=== PATIENT | male | born 1945 | race Caucasian/White ===

== ENCOUNTER 2022-03-03 05:48 | Day surgery (SDC) | payer OTHER ==
[~2022-03-03] VITALS: Ht 175.3 cm; Wt 79.5 kg
[~2022-03-03 05:48] MED LIST: CYCLOBENZAPRINE10 MG PO; ELIQUIS5 MG PO; EQ LUBRICATING15 ML; FEROSUL325 MG PO; HYDROCHLOROTHIA25 MG PO; METOPROLOL TAR100 MG PO; NORVASC10 MG PO; OSTERA TABLET1 EACH PO; VITAMIN D3125 MC1 PO; ZESTRIL40 MG PO
--- NOTE | 2022-03-03 07:57 | NUR ---
03/03/22 0757 Stephanie Moore 0752 PATIENT ARRIVES TO PACU UNRESPONSIVE TO VERBAL STIMULI. RESP EVEN AND UNLABORED, MASK AT 6 LITERS.
--- NOTE | 2022-03-03 08:32 | NUR ---
PT ALERT, OREINTED AND MENTIONED HE HAS HAD SCOPE BEFORE. ALL QUESTIONS ASKED WERE ANSWERED. PT CONFIRMED HE HAS RIDE COMING AT DC. GAVE BLESSING.
--- NOTE | 2022-03-03 11:50 | OR ---
[facility] [address] [place], [place] [address] Signed DATE OF OPERATION: 03/03/2022 SURGEON: Xavier Roberto MD PREOPERATIVE DIAGNOSES: 1. Diverticulosis. 2. Internal hemorrhoids. 3. Intermittent rectal bleeding. 4. Probable personal history of colonic polyps. 5. Borderline anemia, now resolved. POSTOPERATIVE DIAGNOSES: 1. Minimal sigmoid diverticulosis. 2. Moderate external hemorrhoids. 3. Minimal internal hemorrhoids. 4. 5 mm polyp at 7 cm. PROCEDURE: Colonoscopy with hot biopsy. ESTIMATED BLOOD LOSS: None. INDICATIONS: Jasson is a 76-year-old gentleman, asked to see me for followup colonoscopy. He describes anoscopy in the office with banding of hemorrhoids many years ago. He remembers at least two colonoscopies while living in [place]. He said he has been in three different . He is known to have diverticulosis along with his minimal to moderate internal hemorrhoids. He is pretty sure he had colonic polyps removed previously. He does have intermittent rectal bleeding. He had five days of fairly significant rectal bleeding several months ago. That has now resolved. He does use Eliquis for his chronic atrial fibrillation. He has been using iron tablets for quite some time. He had borderline anemia with hematocrit of 40.7. His mean cell volume was normal at 92. That is now resolved. He has no lower GI complaints. There is no family history of colon cancer or polyps to his knowledge. He has also had at least two prior TIAs. In that regard, he really cannot tolerate swings in his blood pressure and therefore he does qualify for monitored anesthesia care. In the office, I had given him a pamphlet on colonoscopy. We had reviewed the nature of the test. He understands there is risk including, but not limited to gas bloating, crampy abdominal pain, bleeding, perforation requiring surgery, and missed diagnosis. He had expressed Electronically Signed By: XAVIER ROBERTO MD 03/03/22 1150 PATIENT NAME: JASSON GALVAN OPERATIVE REPORT DATE OF : 45 REPORT #: [id number] PHYSICIAN: XAVIER ROBERTO MD PCP: NICO JOHNSON REPORT IS CONFIDENTIAL AND NOT TO BE RELEASED WITHOUT AUTHORIZATION [facility] [address] [place], [place] [address] Signed understanding and wished to proceed. PROCEDURE NOTE: Jasson was taken into our endoscopy suite and placed in the left lateral decubitus position. He was given monitored anesthesia care with propofol per our nurse content development specialist. A digital rectal exam was performed. He does have moderate bilateral external hemorrhoids. He had good sphincter tone. Prostate was indurated. The adult colonoscope had been introduced and advanced all the way around into the cecum under direct visualization of the camera. It took a few minutes to pass the colonoscope in and out until we straightened the colon and made our way into the cecum itself. His prep was quite excellent. We could easily see the appendiceal orifice and the ileocecal valve. The scope was then slowly withdrawn. We took pictures throughout for photodocumentation. He does have some diverticula in the sigmoid colon. They are minimal to moderate in size, few in number, and scattered about. We did find one small flat sessile polyp at 7 cm in the rectum. It was easily removed with the help of hot biopsy forceps. Upon retroflexion of the scope, he does have minimal internal hemorrhoids, although, they do appear little bit friable and I suspect they bleed once in a while. After this, the gas was suctioned out and the colonoscope was removed. Jasson tolerated the procedure quite well. RECOMMENDATIONS: I will see Jasson back in my office in 7 to 14 days to review his results. We will also check on his records from [place]. Xavier Roberto MD ALB/MODL /[id number] cc: YASMANY Alejandro MD Copies: NICO JOHNSON Electronically Signed By: XAVIER ROBERTO MD 03/03/22 1150 PATIENT NAME: JASSON GALVAN OPERATIVE REPORT DATE OF : 45 REPORT #: [id number] PHYSICIAN: XAVIER ROBERTO MD PCP: NCIO JOHNSON REPORT IS CONFIDENTIAL AND NOT TO BE RELEASED WITHOUT AUTHORIZATION [facility] [address] [facility] [place] [address] Signed XAVIER ROBERTO MD ~ Electronically Signed By: XAVIER ROBERTO MD 03/03/22 1150 PATIENT NAME: JASSON GALVAN OPERATIVE REPORT DATE OF : 45 REPORT #: [id number] PHYSICIAN: XAVIER ROBERTO MD PCP: NICO JOHNSON REPORT IS CONFIDENTIAL AND NOT TO BE RELEASED WITHOUT AUTHORIZATION
--- NOTE | 2022-03-04 11:43 | PATH ---
[facility] [address] [place], [place] [address] Signed SPECIMEN(S): A RECTAL POLYP AT 8 CM SPECIMEN SOURCE: A. RECTAL POLYP AT 8 CM CLINICAL HISTORY: Colonoscopy. History of rectal bleeding, diverticulosis. Post: Rectal polyp, internal/external hemorrhoids, diverticulosis. FINAL PATHOLOGIC DIAGNOSIS: Rectum, polyp at 8 cm, polypectomy: - Hyperplastic polyp. - Negative for dysplasia or malignancy. NAL:cml:C2NR MICROSCOPIC EXAMINATION: Histologic sections of all submitted blocks are examined by light microscopy. These findings, together with the gross examination, support the pathologic diagnosis. GROSS DESCRIPTION: The specimen, labeled "TH, 1," and designated on the requisition "rectum polypectomy at 8 cm," is received in formalin and consists of one fragment of pink-deutsch tissue (0.3 cm in greatest dimension). The specimen is submitted entirely in cassette (A1). AC (under the direct supervision of a pathologist) The Gross Description was prepared using a voice recognition system. The report was reviewed for accuracy; however, sound-alike word errors, addition and/or deletions may occur. If there is any question about this report, please contact Client Services. PERFORMING LABORATORY: The technical component was performed by [employer], [address] [place] [address] (CLIA# [id number]). [facility], [address] [address] (CLIA# [id number]). Diagnostician: Candi Noland MD Pathologist Electronically Signed 03/04/2022 PATIENT NAME: MARCIANO GALVAN PATHOLOGY DATE OF : 45 REPORT #: [id number] PHYSICIAN: LESA ARRIAGA PCP: NICO JOHNSON REPORT IS CONFIDENTIAL AND NOT TO BE RELEASED WITHOUT AUTHORIZATION [address] [address] Signed Copies: ~ PATIENT NAME: MARCIANO GALVAN PATHOLOGY DATE OF : 45 REPORT #: [id number] PHYSICIAN: LEAS PATHOLOGY PCP: NICO JOHNSON REPORT IS CONFIDENTIAL AND NOT TO BE RELEASED WITHOUT AUTHORIZATION
== END 2022-03-03 08:50 | disposition home or self-care (01) ==
LOC: OPS 05:48 → DS 05:48 → OPS 07:30
PROVIDERS: ATTEND Colon & Rectal Surgery
PROC: 0DBP8ZX Excision of Rectum, Via Natural or Artificial Opening Endoscopic, Diagnostic (ICD-10-PCS; principal; 2022-03-03 07:30)
DX: K62.1 Rectal polyp (principal); K57.30 Diverticulosis of large intestine without perforation or abscess without bleeding; K64.4 Residual hemorrhoidal skin tags; K64.0 First degree hemorrhoids; D50.9 Iron deficiency anemia, unspecified; I48.91 Unspecified atrial fibrillation; Z86.010 Personal history of colon polyps; Z86.73 Personal history of transient ischemic attack (TIA), and cerebral infarction without residual deficits; E78.5 Hyperlipidemia, unspecified; I10 Essential (primary) hypertension
CPT/HCPCS: J2704; J7121

== ENCOUNTER 2022-08-18 13:12 | Emergency (ER) | payer OTHER, MEDICARE ==
[~2022-08-18] VITALS: Ht 175.3 cm; Wt 79.4 kg
== END 2022-08-18 14:20 | disposition home or self-care (01) ==
LOC: ED 13:12
DX: K64.4 Residual hemorrhoidal skin tags (principal); I48.91 Unspecified atrial fibrillation; Z79.899 Other long term (current) drug therapy
CPT/HCPCS: 99282

== ENCOUNTER 2024-06-07 06:40 | Day surgery (SDC) | payer OTHER, MEDICARE ==
[2024-06-04 13:54] VITALS: BP 133/74
[~2024-06-07] VITALS: Ht 175.3 cm; Wt 83.0 kg
[~2024-06-07 06:40] MED LIST changes: +MIDAZOLAM HCL 5 MG/5 ML VIAL IV PRN; +fentaNYL citrate 100 MCG/2 ML VIAL IV PRN
[2024-06-07] MEDS ORDERED: propofoL 200 MG/20 ML VIAL ONE (06:49)
[2024-06-07 06:53] VITALS: BP 143/78
[2024-06-07] MEDS ORDERED: IBLOOD GLUCOSE TEST STRIP 1 EA TEST VI PRN (07:00)
[2024-06-07] MEDS ORDERED: LIDOCAINE HCL 1% 5 ML SDV INJ ONE (07:00)
[2024-06-07] MEDS ORDERED: LACTATED RINGER'S 1,000 ML IV SCH (07:00)
[2024-06-07] MEDS ORDERED: LACTATED RINGER'S 1,000 ML IV ONE (08:53)
--- NOTE | 2024-06-07 09:36 | NUR ---
06/07/24 0936 Neris Cochran 0911 PT ARRIVED TO PACU ON 10L VIA OXYMASK, RESP EVEN AND UNLABORED LAYING ON LEFT SIDE. PT PASSING GAS OFF AND ON. ORAL AND NASAL AIRWAY ON PLACE. 914 BURGLAR ALARM INSTALLER AT BEDSIDE GIVEN BP MEDICATION. 926 PT REACTIVE TO TACTILE SITMULI AND AIRWAYS AND O2 MASK REMOVED. 934 PT WAKES AND REPORTS TO NEED TO VOID. PLAN DISCUSSED WTIH PT. HOB INCREASED SLIGHTLY AND VERY DROWSY AND GRABBING AT BLACKETS. PT RET BACK IN BED.
[2024-06-07 09:54] VITALS: BP 129/88
--- NOTE | 2024-06-07 09:58 | OR ---
[facility] [address] [place], [place] [address] Signed DATE OF OPERATION: 06/07/2024 SURGEON: Xavier Roberto MD PREOPERATIVE DIAGNOSES: 1. Brother with a history of Crohn disease. 2. Intermittent diarrhea and anemia. 3. Possible irritable bowel syndrome. 4. Hemorrhoids. 5. Diverticulosis. 6. History of hyperplastic colonic polyps. POSTOPERATIVE DIAGNOSES: 1. Minimal sigmoid diverticulosis. 2. Minimal internal hemorrhoids. 3. Moderate external hemorrhoids. PROCEDURES: Colonoscopy with cold biopsies of the right colon, transverse colon, left colon, sigmoid colon, and rectum. ESTIMATED BLOOD LOSS: None. INDICATIONS: Jasson is a 78-year-old gentleman asked to see me for followup colonoscopy. We know his brother was diagnosed with Crohn disease many years ago. Jasson describes having trouble over the years with intermittent diarrhea and anemia. He said he had hemorrhoids banded in the past. He knows he has had at least three different colonoscopies. He had one in 2011 at the age of 66 while in [place] that was negative. He had a colonoscopy in [address] 70 [address] Santo Mccloud because he had fecal occult positive blood stool. He probably had irritable bowel syndrome. He said the terminal ileum was visualized, but not biopsied, it was said to be normal. He is known to have diverticulosis along with the internal and external hemorrhoids. I helped him in 2021 at age of 76. Again, he had minimal diverticulosis and moderate external hemorrhoids. He had a very little in the way of internal hemorrhoids. We removed a tiny hyperplastic polyp from the rectum. We did not examine his terminal ileum. He was on vacation and had a CT scan in [place], [place] for his diarrhea. He had multiple areas in his terminal ileum with thickening. Stool studies came back negative, but he believes the stool calprotectin level that was ordered later came back abnormal. He Electronically Signed By: XAVIER ROBERTO MD 06/07/24 0958 PATIENT NAME: JASSON GALVAN OPERATIVE REPORT DATE OF : 45 REPORT #: [id number] PHYSICIAN: XAVIER ROBERTO MD PCP: NICO JOHNSON REPORT IS CONFIDENTIAL AND NOT TO BE RELEASED WITHOUT AUTHORIZATION [facility] [address] [place], [place] [address] Signed went to see his diabetes trainer in [place], [place]. Dr. Jose Valladares asked that he repeat the colonoscopy here in [place], [place] as we live about an hour away. He was hoping for biopsies of the terminal ileum. A repeat CT scan had been ordered in February of this year at [facility]. Again, it showed those same areas of thickening in his terminal ileum. In the office, I had reviewed all this with Jasson in detail. I also offered him upper endoscopy, which he declined. He is very aware of colonoscopy. He knows there is risk including, but not limited to gas bloating, crampy abdominal pain, bleeding, perforation requiring surgery, and missed diagnosis. We also reviewed the written instructions for a bowel prep line by line. It is the same bowel prep we took two years ago. We had him hold his Eliquis five days prior to the procedure. We used monitored anesthesia care two years ago and that worked out well because of his advanced age and his medical issues. We get to receive the Cardiology notes from November of this year. He is quite aware that his friend will be taking him home after the procedure. He has expressed understanding and would like to proceed. DESCRIPTION OF PROCEDURE: Jasson was taken into the endoscopy suite and placed in the left lateral decubitus position. He was given monitored anesthesia care, propofol infusion per our nurse senior oracle developer. A digital rectal exam was performed and again he has moderate circumferential external hemorrhoids. Good sphincter tone. No masses. The adult colonoscope was introduced, advanced all around into the cecum under direct visualization of camera. His prep was good. We could easily see the appendiceal orifice and ileocecal valve. We spent probably 15 minutes trying to turn our camera to go up into the terminal ileum. We never could even find an opening to direct the camera. It was amazingly frustrating. We finally decided to slowly withdraw the scope. We took random cold biopsies throughout for documentation. We saw no evidence of any inflammatory changes throughout the colon. Once in the rectum, the scope was retroflexed, there was no additional pathology noted above the anal canal. After this, the gas was suctioned out, colonoscope removed. Jasson tolerated the procedure quite well. RECOMMENDATIONS: I will see Jasson back in my office in 7 to 14 days to review his biopsy results. Xavier Roberto MD ALB/MODL Electronically Signed By: XAVIER ROBERTO MD 06/07/24 0958 PATIENT NAME: JASSON GALVAN OPERATIVE REPORT DATE OF : 45 REPORT #: [id number] PHYSICIAN: XAVIER ROBERTO MD PCP: NICO JOHNSON REPORT IS CONFIDENTIAL AND NOT TO BE RELEASED WITHOUT AUTHORIZATION [facility] [address] [place], [place] [address] Signed /[id number] cc: [facility] Jose Hidalgo [facility] Copies: ~ Electronically Signed By: XAVIER ROBERTO MD 06/07/24 0958 PATIENT NAME: JASSON GALVAN OPERATIVE REPORT DATE OF : 45 REPORT #: [id number] PHYSICIAN: XAVIER ROBERTO MD PCP: NICO JOHNSON REPORT IS CONFIDENTIAL AND NOT TO BE RELEASED WITHOUT AUTHORIZATION
--- NOTE | 2024-06-15 11:28 | PATH ---
[facility] [address] [place], [place] [address] Signed SPECIMEN(S): A ASCENDING/RIGHT COLON BIOPSY SPECIMEN(S): B TRANSVERSE COLON BIOPSY SPECIMEN(S): C DESCENIDNG/LEFT COLON BIOPSY SPECIMEN(S): D SIGMOID COLON BIOPSY SPECIMEN(S): E RECTUM BIOPSY SPECIMEN SOURCE: A. ASCENDING/RIGHT COLON BIOPSY B. TRANSVERSE COLON BIOPSY C. DESCENIDNG/LEFT COLON BIOPSY D. SIGMOID COLON BIOPSY E. RECTUM BIOPSY CLINICAL HISTORY: History of polyps, diarrhea, anemia, family history of Crohn's FINAL PATHOLOGIC DIAGNOSIS: A. Colon, ascending/right, biopsy: - Colonic mucosa with no significant pathologic changes B. Colon, transverse, biopsy: - Colonic mucosa with no significant pathologic changes C. Colon, descending/left, biopsy: - Colonic mucosa with no significant pathologic changes D. Colon, sigmoid, biopsy: - Colonic mucosa with no significant pathologic changes E. Rectum, biopsy: - Colonic mucosa with no significant pathologic changes BRP MICROSCOPIC EXAMINATION: Histologic sections of all submitted blocks are examined by light microscopy. These findings, together with the gross examination, support the pathologic diagnosis. GROSS DESCRIPTION: A. The specimen, labeled and designated "Hamley, ascending/right colon biopsy," is received in formalin and consists of one deutsch soft tissue fragment, 0.2 cm. Entirely submitted in (A1). B. The specimen, labeled and designated "Hamley, transverse colon biopsy," is received in formalin and consists of one deutsch soft tissue fragment, 0.2 cm. Entirely submitted in (B1). PATIENT NAME: MARCIANO GALVAN PATHOLOGY DATE OF : 45 REPORT #: [id number] PHYSICIAN: LESA ARRIAGA PCP: NICO JOHNSON REPORT IS CONFIDENTIAL AND NOT TO BE RELEASED WITHOUT AUTHORIZATION [facility] [address] [place], [place] [address] Signed C. The specimen, labeled and designated "Charisse, descending/left colon biopsy," is received in formalin and consists of one deutsch soft tissue fragment, 0.4 cm. Entirely submitted in (C1). D. The specimen, labeled and designated "Charisse, sigmoid colon biopsy," is received in formalin and consists of one deutsch soft tissue fragment, 0.2 cm. Entirely submitted in (D1). E. The specimen, labeled and designated "Charisse, rectum biopsy," is received in formalin and consists of one deutsch soft tissue fragment, 0.3 cm. Entirely submitted in (E1). VB (under the direct supervision of a pathologist) The Gross Description was prepared using a voice recognition system. The report was reviewed for accuracy; however, sound-alike word errors, addition and/or deletions may occur. If there is any question about this report, please contact Client Services. ADDITIONAL NOTES: Immunohistochemical and/or in situ hybridization studies if performed in this case included appropriate positive controls that reacted as expected. This test was developed and its performance characteristics determined by [facility]. It has not been cleared or approved by the U.S. Food and Drug Administration. The FDA has determined that such clearance or approval is not necessary. This test is used for clinical purposes. It should not be regarded as investigational or for research. [facility] is certified under the Clinical Laboratory Improvement Amendments of 1988 (CLIA) as qualified to perform high complexity clinical laboratory testing. PERFORMING LABORATORY: Technical component was performed by [facility], [address] [place] [address] (CLIA# [id number]). Professional interpretation was performed by [facility], [address] [facility] [place] [address] [address] (CLIA# [id number]). Diagnostician: Nicola Lund MD Pathologist Electronically Signed 06/15/2024 Copies: PATIENT NAME: MARCIANO GALVAN PATHOLOGY DATE OF : 45 REPORT #: [id number] PHYSICIAN: LESA ARRIAGA PCP: NICO JOHNSON REPORT IS CONFIDENTIAL AND NOT TO BE RELEASED WITHOUT AUTHORIZATION [facility] [address] [place] [address] Signed ~ PATIENT NAME: MARCIANO GALVAN PATHOLOGY DATE OF : 45 REPORT #: [id number] PHYSICIAN: LESA ARRIAGA PCP: NICO JOHNSON REPORT IS CONFIDENTIAL AND NOT TO BE RELEASED WITHOUT AUTHORIZATION
== END 2024-06-07 10:07 | disposition home or self-care (01) ==
LOC: DS 06:40
PROVIDERS: ATTEND Colon & Rectal Surgery
PROC: 0DBL8ZX Excision of Transverse Colon, Via Natural or Artificial Opening Endoscopic, Diagnostic (ICD-10-PCS; 2024-06-07)
PROC: 0DBN8ZX Excision of Sigmoid Colon, Via Natural or Artificial Opening Endoscopic, Diagnostic (ICD-10-PCS; 2024-06-07)
PROC: 0DBP8ZX Excision of Rectum, Via Natural or Artificial Opening Endoscopic, Diagnostic (ICD-10-PCS; 2024-06-07)
PROC: 0DBF8ZX Excision of Right Large Intestine, Via Natural or Artificial Opening Endoscopic, Diagnostic (ICD-10-PCS; 2024-06-07)
PROC: 0DBG8ZX Excision of Left Large Intestine, Via Natural or Artificial Opening Endoscopic, Diagnostic (ICD-10-PCS; principal; 2024-06-07 08:10)
DX: K64.0 First degree hemorrhoids (principal); K64.4 Residual hemorrhoidal skin tags; K57.30 Diverticulosis of large intestine without perforation or abscess without bleeding; I10 Essential (primary) hypertension; E78.5 Hyperlipidemia, unspecified; F33.9 Major depressive disorder, recurrent, unspecified; K63.9 Disease of intestine, unspecified; K52.9 Noninfective gastroenteritis and colitis, unspecified; I48.91 Unspecified atrial fibrillation; Z86.010 Personal history of colon polyps; Z79.899 Other long term (current) drug therapy; Z83.79 Family history of other diseases of the digestive system
CPT/HCPCS: 00811; 88305; J2704; J7121

== ENCOUNTER 2025-03-21 12:35 | Emergency (ER) | payer MEDICARE, OTHER ==
[~2025-03-21] VITALS: Ht 175.3 cm; Wt 78.1 kg
[~2025-03-21 12:35] MED LIST changes: -MIDAZOLAM HCL 5 MG/5 ML VIAL IV PRN; -fentaNYL citrate 100 MCG/2 ML VIAL IV PRN
[2025-03-21 14:12] LABS: BASOPHILS 0.6 % (0-2); EOSINOPHILS 1.4 % (0-6); HEMATOCRIT 36.6 % (35.0-50.0); HEMOGLOBIN 13.1 g/dL (12.0-18.0); MCH 32.2 (27-36); MCHC 35.7 g/dl (30-36); MCV 90.2 fl (81-99); MONOCYTES 5.4 % (0-12); NEUTROPHILS 78.6 % (39-80); PLATELET COUNT 167 K/uL (140-440); RBC 4.06 M/ul (4.3-5.7); RDW 12.4 (10.5-15.0)
[2025-03-21 14:27] LABS: BILIRUBIN, URINE NEGATIVE (negative); BLOOD/HGB, URINE NEGATIVE (Negative); KETONE, URINE NEGATIVE (Negative); LEUK ESTERASE, URINE NEGATIVE (negative); NITRITE, URINE NEGATIVE (negative); PH, URINE 6.5 (5-7)
[2025-03-21 14:35] LABS: ALBUMIN 3.3 g/dL (3.4-5.0); ALBUMIN/GLOBULIN RATIO 1.18 (1.1-2.4); ANION GAP 6.6 (7-21); BILIRUBIN, TOTAL 0.8 mg/dL (0.2-1.0); BUN/CREATININE RATIO 17.97 (6.0-28.6); CALCIUM 8.8 mg/dL (8.5-10.1); CREATININE, SERUM 0.89 mg/dL (0.70-1.30); POTASSIUM 3.6 mmol/L (3.5-5.1); PROTEIN, TOTAL 6.1 g/dL (6.4-8.2)
[2025-03-21 15:30] VITALS: BP 164/91
== END 2025-03-21 15:30 | disposition home or self-care (01) ==
LOC: ED 12:35
PROVIDERS: Emergency Medicine
DX: K40.90 Unilateral inguinal hernia, without obstruction or gangrene, not specified as recurrent (principal); I48.91 Unspecified atrial fibrillation; Z79.899 Other long term (current) drug therapy
CPT/HCPCS: 36415; 80053; 81003; 83690; 85025; 99283

== ENCOUNTER 2025-04-03 07:15 | Day surgery (SDC) | payer OTHER ==
[2025-03-28 13:38] VITALS: BP 175/94
[2025-03-28 14:49] VITALS: BP 175/94
[~2025-04-03] VITALS: Ht 175.3 cm; Wt 79.4 kg
--- NOTE | ~2025-04-03 | OR ---
[facility] [address] [place], [place] [address] Draft DATE OF OPERATION: 04/03/2025 SURGEON: Edgar Jones DO PREOPERATIVE DIAGNOSIS: Incarcerated direct inguinal hernia. POSTOPERATIVE DIAGNOSIS: Incarcerated direct inguinal hernia PROCEDURE PERFORMED: Repair of incarcerated left inguinal hernia with mesh. ANESTHESIA: General. ESTIMATED BLOOD LOSS: Minimal. DRAINS: None. COMPLICATIONS: None. DESCRIPTION OF PROCEDURE: The patient was brought to the operating room, placed in supine position. After induction of general endotracheal anesthesia, a TAP block was performed by Anesthesia. . The abdomen was then sterilely shaved, prepped, and draped in usual fashion. Utilizing a linear incision with scalpel inguinal canal. Skin was incised with a scalpel. Dissection continued down to subcutaneous tissue. Bleeding was controlled with electrocautery. The external ring was identified digitally that was opened sharply exposing the cord and cord structures. The floor of the inguinal canal was noted to be completely disrupted and the cord and cord structures brought out of the harms way. No indirect component was noted. Decision to proceed with mesh repair was then made. A composite mesh was then shaved to fit the inguinal canal and inguinal floor. It was attached in interrupted fashion from the suprapubic bone along the medial aspect and along lateral aspect of ilioinguinal ligament and superiorly the cord was placed back into its anatomical position. The mesh found to be satisfactory and secured. The region was copiously irrigated out and found to be excellent repair. PATIENT NAME: MARCIANO GALVAN OPERATIVE REPORT DATE OF : 45 REPORT #: [id number] PHYSICIAN: EDGAR JONES DO PCP: OTHER PCP REPORT IS CONFIDENTIAL AND NOT TO BE RELEASED WITHOUT AUTHORIZATION [facility] [address] [place], [place] [address] Draft External oblique was then reapproximated, external ring was reapproximated with interrupted suture of 2-0 Vicryl. Subcutaneous tissue was then closed with interrupted suture of 3-0 Vicryl, skin was closed with 4-0 Monocryl in a subcuticular fashion. Sterile dressing was applied. The patient tolerated the procedure well and taken to recovery room in satisfactory condition. DO LUMA Downing/ANDRAEL /[id number] Copies: ~ PATIENT NAME: MARCIANO GALVAN OPERATIVE REPORT DATE OF : 45 REPORT #: [id number] PHYSICIAN: EDGAR JONES DO PCP: OTHER PCP REPORT IS CONFIDENTIAL AND NOT TO BE RELEASED WITHOUT AUTHORIZATION
[~2025-04-03 07:15] MED LIST changes: +BACLOFEN20 MG PO; +CEFAZOLIN SODIUM 2 GM/20 ML SYR IV SCH; +FINASTERIDE5 MG PO; +FLOMAX0.4 MG PO; +HEParin SOD (PORCINE) 5,000 UNIT/ML SDV SUB-Q SCH; +IBLOOD GLUCOSE TEST STRIP 1 EA TEST VI PRN; +LACTATED RINGER'S 1,000 ML IV SCH; +LIDOCAINE HCL 1% 5 ML SDV INJ ONE; +LIPITOR10 MG PO; +METFORMIN HCL500 MG PO; +MIDAZOLAM HCL 5 MG/5 ML VIAL IV PRN; +PROZAC10 MG PO; +fentaNYL citrate 100 MCG/2 ML VIAL IV PRN
[2025-04-03 07:34] VITALS: BP 156/109
[2025-04-03 08:10] VITALS: BP 166/109
[2025-04-03] MEDS ORDERED: LIDOCAINE HCL 2% 5 ML SDV ONE (08:26)
[2025-04-03] MEDS ORDERED: propofoL 200 MG/20 ML VIAL ONE (08:26)
[2025-04-03] MEDS ORDERED: dexmedeTOMIDine HCl 200 MCG/2 ML VIAL ONE (08:26)
[2025-04-03] MEDS ORDERED: Ropivacaine HCl 0.5% 30 ML VIAL ONE (08:26)
[2025-04-03] MEDS ORDERED: fentaNYL citrate 50 MCG/ML SDV ONE (09:46)
[2025-04-03 10:32] VITALS: BP 156/77
[2025-04-03] MEDS ORDERED: droPERidol 5 MG/2 ML VIAL IV PRN (11:00)
[2025-04-03] MEDS ORDERED: fentaNYL citrate 50 MCG/ML SDV IV PRN (11:00)
[2025-04-03] MEDS ORDERED: NALOXONE HCL 0.4 MG SYR IV PRN (11:00)
[2025-04-03] MEDS ORDERED: ondansetron HCL 4 MG/2 ML VIAL ONE (11:04)
[2025-04-03] MEDS ORDERED: ACETAMINOPHEN 1,000 MG/100 ML VIAL ONE (11:04)
[2025-04-03] MEDS ORDERED: METOPROLOL TARTRATE 5 MG/5 ML VIAL ONE (11:04)
[2025-04-03 11:53] VITALS: BP 157/87
[2025-04-03] MEDS ORDERED: HYDROCODONE/ACETA 7.5/325 TAB PO PRN (12:15)
[2025-04-03 13:10] VITALS: BP 129/82
[2025-04-03] MEDS ORDERED: SEVOFLURANE 250 ML BTL INH ONE (14:49)
== END 2025-04-03 13:33 | disposition home or self-care (01) ==
LOC: DS 07:15
PROVIDERS: ATTEND Surgery
PROC: 0YU60JZ Supplement Left Inguinal Region with Synthetic Substitute, Open Approach (ICD-10-PCS; principal; 2025-04-03 08:20)
DX: K40.30 Unilateral inguinal hernia, with obstruction, without gangrene, not specified as recurrent (principal); I48.20 Chronic atrial fibrillation, unspecified; I11.9 Hypertensive heart disease without heart failure; E29.1 Testicular hypofunction; Z79.01 Long term (current) use of anticoagulants; Z79.84 Long term (current) use of oral hypoglycemic drugs; Z79.899 Other long term (current) drug therapy
CPT/HCPCS: 00830; 64425; 76942; A9270; C1781; J0131; J0690; J1644; J2003; J2405; J2704; J2795; J3010; J7121

== ENCOUNTER 2025-07-08 16:32 | Emergency (ER) | payer OTHER ==
[~2025-07-08] VITALS: Ht 175.3 cm; Wt 73.8 kg
[~2025-07-08 16:32] MED LIST changes: -CEFAZOLIN SODIUM 2 GM/20 ML SYR IV SCH; -HEParin SOD (PORCINE) 5,000 UNIT/ML SDV SUB-Q SCH; -IBLOOD GLUCOSE TEST STRIP 1 EA TEST VI PRN; -LACTATED RINGER'S 1,000 ML IV SCH; -LIDOCAINE HCL 1% 5 ML SDV INJ ONE; -MIDAZOLAM HCL 5 MG/5 ML VIAL IV PRN; -fentaNYL citrate 100 MCG/2 ML VIAL IV PRN
[2025-07-08] MEDS ORDERED: SPIRONOLACTONE25 MG PO (18:55)
[2025-07-08] MEDS ORDERED: CHLORTHALIDONE25 MG PO (18:55)
[2025-07-08 19:51] LABS: BASOPHILS 0.2 % (0.2-1.2); EOSINOPHILS 0.8 % (0.8-7.0); LYMPHOCYTES 13.3 % (21.8-53.1); MCH 30.6 PG (25.7-32.2); MCHC 33.2 g/dL (32.3-36.5); MCV 92.0 fL (79.0-92.2); MONOCYTES 6.1 % (5.3-12.2); NEUTROPHILS 79.3 % (34.0-67.9); RBC 2.88 M/uL (4.63-6.08)
[2025-07-08 20:00] LABS: ALT (SGPT) 21.0 U/L (14-59); AST (SGOT) 16.0 U/L (15-37); GLOMERULAR FILTRATION RATE,EST 65.0 mL/min (>60); PROTEIN, TOTAL 6.4 g/dL (6.4-8.2); UREA NITROGEN 26.0 mg/dL (7-18)
[2025-07-08] MEDS ORDERED: LACTATED RINGER'S 1,000 ML IV ONE (20:15)
[2025-07-08 20:21] LABS: INR 1.14 (0.80-1.30); PROTIME 13.8 Sec (11.2-14.2)
[2025-07-08 20:32] LABS: TSH, 3RD GENERATION 2.619 uIU/mL (0.358-3.740)
[2025-07-08 21:06] LABS: ABO O; ANTIBODY SCREEN NEGATIVE; RH POSITIVE
[2025-07-08 22:32] VITALS: BP 139/98
--- NOTE | 2025-07-09 15:47 | EKG ---
[facility] [address] [facility] [place] [address] \T\ T wave abnormality, consider lateral ischemia Abnormal ECG When compared with ECG of 28-Mar-2025 14:02:13 No significant change was found Confirmed by John Paul Adkins MD ([id number]) on 07/09/2025 3:47:03 PM Electronically Signed By: JOHN PAUL ADKINS MD 07/09/25 1547 PATIENT NAME: MARCIANO GALVAN JALEN Electrocardiogram DATE OF : 45 PHYSICIAN: JOHN PAUL ADKINS MD REPORT #: [id number] REPORT IS CONFIDENTIAL AND NOT TO BE RELEASED WITHOUT AUTHORIZATION
== END 2025-07-08 22:33 | disposition home or self-care (01) ==
LOC: ED 16:32
PROVIDERS: Emergency Medicine; Internal Medicine
DX: E86.0 Dehydration (principal); D64.9 Anemia, unspecified; Z79.01 Long term (current) use of anticoagulants; Z79.84 Long term (current) use of oral hypoglycemic drugs; Z79.899 Other long term (current) drug therapy
CPT/HCPCS: 36415; 80053; 83880; 84443; 85025; 85610; 85730; 86850; 86900; 86901; 93005; 93010; 99285; J7121

== ENCOUNTER 2025-08-12 12:53 | Emergency (ER) | payer OTHER ==
[~2025-08-12] VITALS: Ht 175.3 cm; Wt 73.0 kg
[~2025-08-12 12:53] MED LIST changes: +CHLORTHALIDONE25 MG PO; +SPIRONOLACTONE25 MG PO
[2025-08-12 13:31] VITALS: BP 141/78
== END 2025-08-12 13:31 | disposition home or self-care (01) ==
LOC: ED 12:53
DX: S80.11XA Contusion of right lower leg, initial encounter (principal); I48.91 Unspecified atrial fibrillation; Z79.01 Long term (current) use of anticoagulants; Z79.84 Long term (current) use of oral hypoglycemic drugs; Z79.899 Other long term (current) drug therapy; W22.8XXA Striking against or struck by other objects, initial encounter
CPT/HCPCS: 99283

== ENCOUNTER 2025-08-20 11:15 | Emergency (ER) | payer OTHER ==
[~2025-08-20] VITALS: Ht 175.3 cm; Wt 75.0 kg
--- OUTSIDE RECORDS SUMMARY | ~2025-08-20 | XMS | Continuity of Care Document ---
Demographics + + + | Address | [facility] [address] | | | [place] [address] | + + + | Preferred Language | Unknown | + + + | Marital Status | Never | + + + | Protestant Affiliation | Unknown | + + + | Race | White | + + + | Ethnic Group | Not or | + + + Author + + + | Author | [place] | + + + | Organization | [place] | + + + | Address | [address] | | | [place] [address] | + + + | Phone | | + + + Care Team Providers + + + + | Care Pulley Mortiser Operator Name | Role | Phone | + + + + Unavailable | Unavailable | + + + + Unavailable | Unavailable | + + + + Allergies No information. Encounters No information. Functional Status No information. Immunizations No information. Medications + + + + | date | description | facility | + + + + | (no date) | APIXABAN | [facility] | | | | [facility] | + + + + | (no date) | BACLOFEN | [facility] | | | | [facility] | + + + + | (no date) | CHLORTHALIDONE | [facility] | | | | [facility] | + + + + | (no date) | FLUOXETINE HCL | [facility] | | | | [facility] | + + + + | (no date) | LISINOPRIL | [facility] | | | | [facility] | + + + + | (no date) | Cholecalciferol (Vitamin | [facility] | | | D3) | [facility] | + + + + | (no date) | FERROUS SULFATE | [facility] | | | | [facility] | + + + + | (no date) | FINASTERIDE | [facility] | | | | [facility] | + + + + | (no date) | HYDROCHLOROTHIAZIDE | [facility] | | | | [facility] | + + + + | (no date) | SPIRONOLACTONE | [facility] | | | | [facility] | + + + + | (no date) | ATORVASTATIN | [facility] | | | | [facility] | + + + + | (no date) | METFORMIN HCL | [facility] | | | | [facility] | + + + + | (no date) | TAMSULOSIN HCL | [facility] | | | | [facility] | + + + + | (no date) | METOPROLOL TARTRATE | [facility] | | | | [facility] | + + + + Problems + + + + | date | description | facility | + + + + | 2025-07-08 00:00 | Anemia | [facility] | | | | [facility] | + + + + | 2025-07-08 00:00 | Dehydration | [facility] | | | | [facility] | + + + + Procedures No information. Results/Labs +--------+--------+ +---------+--------+---------+ | test | date | facility | value | unit | notes | +--------+--------+ +---------+--------+---------+ + + | Result panel 1 | + + + + + +--------+ + + | WBC # Bld | 2025-07-08 | | 8.86 | (missing) [...] 4 | + + + + + +-------+ [...] 5 | + + + + + +-------+ [...] 8 | + + + + + +--------+ [...] 9 | + + + + + +-------+---------+ + | Glucose | 2025-07-08 | | 142 | mg/dL | (missing) | | [facility] | 19:32:07 | [facility] | | [place] [facility] | | | | + + + +-------+---------+ + + + | Result panel 10 | + + + + + +------+---------+ + | BUN | 2025-07-08 | | 26 | mg/dL | (missing) | | [facility] | 19:32:07 | [facility] [place] [facility] | | | | + + + +------+---------+ + + + | Result panel 11 | + + + + + +--------+---------+ + | Creat | 2025-07-08 | | 1.14 | mg/dL | (missing) | | [facility] | 19:32:07 | [facility] [place] [facility] | | | | + + + +--------+---------+ + + + | Result panel 12 | + + + + + +--------+ [...] 13 | + + + + + +------+ [...] 14 | + + + + + +---------+ [...] 15 | + + + + + +-------+ [...] 16 | + + + + + +-------+ [...] 17 | + + + + + +------+ [...] + + + + | Result panel 18 | + + + + + +------+ + + | CO2 | 2025-07-08 | | 29 | (missing) | (missing) | | [facility] | 19:32:07 | [facility] [place] [facility] | | | | + + + +------+ + + + + | Result panel 19 | + + + + + +--------+ [...] + + + + | Result panel 20 | + + + + + +-------+---------+ [...] +-------+---------+ + + + | Result panel 21 | + + + + + +-------+ + + | Prot | 2025-07-08 | | 6.4 | (missing) | (missing) | | [facility] | 19:32:07 | [facility] | | | [...] 3.1 | (missing) | (missing) | | [facility] | 19:32:07 | [facility] | | | [...] | | | | | | - | | | | | | | [place] [facility] | | | | | [facility] | | | | + + + +-------+ + + + + | Result panel 24 | + + + + + +-------+ + + | Globulin | 2025-07-08 | | 3.3 | (missing) | (missing) | | [facility] | 19:32:07 | [facility] [place] [facility] | | | | + + + +-------+ + + + + | Result panel 25 | + + + + + +--------+ [...] 26 | + + + + + +-------+---------+ [...] +-------+---------+ + + + | Result panel 27 | + + + + + +------+ [...] + + + + | Result panel 28 | + + + + + +------+ [...] 29 | + + + + + +------+ + + | ALP | 2025-07-08 | | 88 | (missing) | (missing) | | [facility] | 19:32:07 | [facility] [place] [facility] | | | | + + + +------+ + + + + | Result panel 30 | + + + + + +---------+ + + | TSH SerPl | 2025-07-08 | | 2.619 | (missing) | (missing) | | DL<=0.005 | :32:07 | [facility] | | | | | mIU/L-aCnc | | - | | | | | | | [place] [facility] | | | | [facility] | | | | + + + +---------+ + + + + | Result panel 31 | + + + + + +--------+ + + | Hct VFr.DF | 2025-07-08 | | 26.5 | (missing) | (missing) | | Bld Auto | :32:07 | [facility] [place] [facility] | | | | + + + +--------+ + + + + | Result panel 32 | + + + + + +--------+ [...] + + + + | Result panel 33 | + + + + + +--------+ [...] 34 | + + + + + +--------+ [...] 35 | + + + + + +-------+ [...] 36 | + + + + + +--------+ [...] | | | | | | | Brelin | | | | | | | [...] + + + + + + + Social History + + + + | date | description | facility | + + + + | (no date) | Unknown if ever smoked | [facility] | | | | [facility] | + + + + Vital [...] 162.700 | lb | + + + +---------+"
--- OUTSIDE RECORDS SUMMARY | 2025-08-20 11:22 | XMS ---
PreManage Notification: MARCIANO GALVAN Security Meat Packager Events No recent Security Events currently on file CRITERIA MET - [facility] - 2 Visits in 30 Days CARE PROVIDERS There are no care providers on record at this time. Ghazal has no Care Guidelines for this patient. Denis VISIT COUNT (12 MO.) 4 KASANDRA Sadler 1 [place]. TOTAL 5 NOTE: Visits indicate total known visits. ED/UCC VISIT TRACKING (12 MO.) 08/20/2025 11:15 KASANDRA Todd [place] TYPE: Emergency COMPLAINT: - RT LEG PAIN 08/12/2025 12:54 KASANDRA Todd [place] TYPE: Emergency COMPLAINT: - RT LEG INJURY DIAGNOSES: - Contusion of right lower leg, initial encounter - intermodal dispatcher (current) use of anticoagulants - intermodal dispatcher (current) use of oral hypoglycemic drugs - Other fdc (current) drug therapy - Pain in right lower leg - Striking against or struck by other objects, initial encounter - Unspecified atrial fibrillation 07/08/2025 16:33 KASANDRA Todd [place] TYPE: Emergency COMPLAINT: - WEAKNESS,DIZZY DIAGNOSES: - Anemia, unspecified - Dehydration - skilled nursing (current) use of anticoagulants - skilled nursing (current) use of oral hypoglycemic drugs - Other fdc (current) drug therapy - Weakness 03/21/2025 12:35 KASANDRA Todd [place] TYPE: Emergency COMPLAINT: - ABDOMINAL PAIN DIAGNOSES: - Other termination clerk (current) drug therapy - Unilateral inguinal hernia, without obstruction or gangrene, not specified as recurrent - Unspecified atrial fibrillation 10/11/2024 17:33 [facility] TYPE: Emergency COMPLAINT: - nose bleed DIAGNOSES: 1. Epistaxis INPATIENT VISIT TRACKING (12 MO.) No inpatient visits to display in this time frame [email or web address]
[2025-08-20 12:59] LABS: BASOPHILS 0.3 % (0.2-1.2); EOSINOPHILS 1.5 % (0.8-7.0); LYMPHOCYTES 15.4 % (21.8-53.1); MCH 29.7 PG (25.7-32.2); MCHC 32.4 g/dL (32.3-36.5); MCV 91.8 fL (79.0-92.2); MONOCYTES 8.4 % (5.3-12.2); NEUTROPHILS 74.3 % (34.0-67.9); RBC 3.43 M/uL (4.63-6.08)
[2025-08-20 13:18] LABS: ALT (SGPT) 12.0 U/L (14-59); AST (SGOT) 14.0 U/L (15-37); GLOMERULAR FILTRATION RATE,EST 79.0 mL/min (>60); PROTEIN, TOTAL 6.1 g/dL (6.4-8.2); UREA NITROGEN 16.0 mg/dL (7-18)
[2025-08-20] MEDS ORDERED: CEPHALEXIN500 M1 PO (13:50)
[2025-08-20] MEDS ORDERED: CEPHALEXIN MONOHYDRATE 500 MG CAP PO ONE (14:00)
[2025-08-20 14:09] VITALS: BP 138/75
== END 2025-08-20 14:12 | disposition home or self-care (01) ==
LOC: ED 11:15
PROVIDERS: Emergency Medicine
DX: L03.115 Cellulitis of right lower limb (principal); I48.91 Unspecified atrial fibrillation; Z79.01 Long term (current) use of anticoagulants; Z79.84 Long term (current) use of oral hypoglycemic drugs; Z79.899 Other long term (current) drug therapy
CPT/HCPCS: 36415; 80053; 85025; 99283; A9270

== ENCOUNTER 2025-09-11 07:50 | Day surgery (SDC) | payer OTHER ==
[~2025-09-11] VITALS: Ht 175.3 cm; Wt 73.0 kg
[~2025-09-11 07:50] MED LIST changes: +CEPHALEXIN500 M1 PO; +IBLOOD GLUCOSE TEST STRIP 1 EA TEST VI PRN; +LACTATED RINGER'S 1,000 ML IV SCH; +LIDOCAINE HCL 1% 5 ML SDV INJ ONE
[2025-09-11 08:33] VITALS: BP 116/75
[2025-09-11] MEDS ORDERED: CEFAZOLIN SODIUM 2 GM in SODIUM CHLORIDE 0.9% 100 ML IV ONE (09:00)
[2025-09-11] MEDS ORDERED: LIDOCAINE HCL 2% 5 ML SDV ONE (09:19)
[2025-09-11] MEDS ORDERED: fentaNYL citrate 100 MCG/2 ML VIAL ONE (09:20)
[2025-09-11] MEDS ORDERED: DEXAMETHASONE SOD PHOS 4 MG/ML VIAL ONE (09:33)
[2025-09-11] MEDS ORDERED: ACETAMINOPHEN 1,000 MG/100 ML VIAL ONE (09:35)
[2025-09-11] MEDS ORDERED: PHENYLEPHRINE HCL IN 0.9% NACL 1 MG/10 ML SYR ONE (09:37)
[2025-09-11] MEDS ORDERED: HYDROmorphone HCL 1 MG/ML SYR IV PRN (10:00)
[2025-09-11] MEDS ORDERED: NALOXONE HCL 0.4 MG SYR IV PRN (10:00)
[2025-09-11] MEDS ORDERED: IBLOOD GLUCOSE TEST STRIP 1 EA TEST VI PRN (10:00)
[2025-09-11] MEDS ORDERED: fentaNYL citrate 50 MCG/ML SDV IV PRN (10:00)
[2025-09-11] MEDS ORDERED: KETOROLAC TROMETHAMINE 30 MG/ML VIAL ONE (10:06)
--- NOTE | 2025-09-11 10:45 | NUR ---
09/11/25 1045 Nona Gaston LE 1032: PT ARRIVES TO PACU NON AROUSAL WITH ORAL AIRWAY IN PLACE. REPORT RECEIVED FROM COLOR BUFFER AND SUPERVISOR SHAVING AND SPLITTING. COLOR BUFFER HELPS THIS RN PUT ON SCROTAL SUPPORT. LE 1040: AIRWAY IS REMOVED.
[2025-09-11 11:28] VITALS: BP 131/72
--- NOTE | 2025-09-11 12:22 | NUR ---
1130: PATIENT BACK IN DAY SURGERY ROOM FROM PACU. RATES PAIN /10. DECLINES PAIN MEDICATION AT THIS TIME. IV SITE SALINE LOCKED. SCDs ON. ICE WATER AND APPLESAUCE PLACED AT BEDSIDE. LEFT GROIN DRESSING CDI. JOCK STRAP IN PLACE. ICE PACK TO LEFT GROIN. CALL LIGHT WITHIN REACH.
[2025-09-11] MEDS ORDERED: HYDROCODONE/ACETA 5/325 TAB PO PRN (12:30)
[2025-09-11 12:35] VITALS: BP 128/81
--- NOTE | 2025-09-11 12:53 | NUR ---
1235: VS CHECKED. PATIENT RATES PAIN THE SAME 01/28. REQUESTS PAIN PILL BEFORE GETTING OUT OF BED AND MOVING. LEFT GROIN DRESSING CDI. ICE PACK TO LEFT GROIN. TOLERATING WATER. TOLERATED APPLESAUCE. CALL LIGHT WITHIN REACH. 1243: PATIENT MEDICATED FOR PAIN WITH 1 TAB OF NORCO. WILL CHECK BACK IN 30 - 45 MINUTES TO SEE IF PATIENT IS READY TO GET OOB. CALL LIGHT WITHIN REACH.
[2025-09-11] MEDS ORDERED: CEPHALEXIN500 M1 PO ×2 (13:22)
[2025-09-11] MEDS ORDERED: HYDROCODON-ACE1 EA10 PO ×2 (13:22)
[2025-09-11 13:41] VITALS: BP 146/78
--- NOTE | 2025-09-11 13:43 | NUR ---
PATIENT ASSISTED OOB. PATIENT STOOD AND TOOK STEPS AT BEDSIDE. LEFT LEG FEELING SLIGHTLY WEAK. PATIENT USED URINAL AT BEDSIDE. ONLY ABLE TO VOID APPROXIMATELY 50 ML AT THIS TIME. PATIENT BACK IN BED. VS CHECKED. WARM BLANKET GIVEN. WATER REFILLED. CALL LIGHT WITHIN REACH.
[2025-09-11 15:25] VITALS: BP 154/84
--- NOTE | 2025-09-11 15:51 | NUR ---
1445: DISCHARGE INSTRUCTIONS GIVEN TO PATIENT. 1505: PATIENT ASSISTED OOB AND TO WALK AROUND ROOM. GAIT STEADY. PATIENT USED URINAL AT BEDSIDE. VOID APPROXIMATELY 175 ML. PATIENT STATES READY TO GO HOME. 1525: PATIENT ASSISTED TO GET DRESSED. VS CHECKED. IV DC'D WNL. TIP INTACT. DRESSING APPLIED. 1529: PATIENT DISCHARGED TO HOME VIA WHEELCHAIR WITH FRIEND JOSH.
[2025-09-11] MEDS ORDERED: SEVOFLURANE 250 ML BTL INH ONE (16:30)
--- NOTE | 2025-09-13 08:53 | OR ---
[facility] [address] [place], [place] [address] Signed DATE OF OPERATION: 09/11/2025 SURGEON: Javier Jones DO PREOPERATIVE DIAGNOSIS: Left inguinal hernia with mesh failure. POSTOPERATIVE DIAGNOSIS: Left inguinal hernia with mesh failure. PROCEDURE PERFORMED: Left inguinal hernia repair with mesh removal. ANESTHESIA: General. ESTIMATED BLOOD LOSS: Minimal. DRAINS: None. COMPLICATIONS: None. DESCRIPTION OF PROCEDURE: The patient was brought to the operating room, placed in the supine position. After induction of general endotracheal anesthesia, the abdomen was then sterilely shaved, prepped, and draped in usual fashion. Utilizing a linear incision over the previous inguinal hernia repair, skin was incised was scalpel. Dissection continued down through the layers of subcutaneous tissue. Bleeding points were controlled with electrocautery. The external oblique aponeurosis was then identified and entered sharply. It was densely adhered to the posterior was taken down and elevated with blunt and sharp technique with Bovie cautery. Upon further examination and inspection of the inguinal canal, the cord and cord structures were mobilized and brought up out of the field. The mesh was noted to be completely disrupted and nonadherent to any portion of the inguinal canal and on that basis decision to excise the mesh, new target was then made. The mesh was then excised utilizing the scissors and passed off the field. No infection was noted, but it was a mesh failure. Decision to proceed with primary repair of the inguinal canal was then performed interrupted 0 Ethibond from the apex Electronically Signed By: JAVIER JONES DO 09/13/25 0853 PATIENT NAME: MARCIANO GALVAN OPERATIVE REPORT DATE OF : 45 REPORT #: [id number] PHYSICIAN: JAVIER JONES DO PCP: OTHER PCP REPORT IS CONFIDENTIAL AND NOT TO BE RELEASED WITHOUT AUTHORIZATION [facility] [address] [place], [place] [address] Signed of the inguinal canal to the internal ring and interrupted 0 Ethibonds were then placed from the medial musculature to the shelving edge of the ilioinguinal ligament, securing the floor itself in a satisfactory position. This was a direct hernia and no indirect hernia was appreciated. Cord and cord structures placed back in their anatomic position and external oblique aponeurosis was then reapproximated after the region was copiously irrigated and dried with 2-0 Vicryl in a running fashion. Subcutaneous tissue was then thoroughly irrigated and dried. The subcutaneous tissues were closed with 3-0 Vicryl and the skin was closed with clips. Sterile dressing was applied. The patient tolerated the procedure well, went to recovery room in satisfactory condition. this is a 79-year-old male, who had a previous left inguinal hernia repair with mesh placement. He had persistent pain on the left inguinal side and a notable bulge on the patient examination. It was felt that he had mesh failure and complete mesh disruption. This was the indication. No mesh was adherent in the inguinal canal. The mesh was removed. A primary inguinal hernia repair was performed. He tolerated the procedure well. Javier Jones DO RS/MODL /[id number] Copies: ~ Electronically Signed By: JAVIER JONES DO 09/13/25 0853 PATIENT NAME: MARCIANO GALVAN JALEN OPERATIVE REPORT DATE OF : 45 REPORT #: [id number] PHYSICIAN: JAVIER JONES DO PCP: OTHER PCP REPORT IS CONFIDENTIAL AND NOT TO BE RELEASED WITHOUT AUTHORIZATION
--- NOTE | 2025-09-13 13:26 | PATH ---
[facility] [address] [address], [place] [address] Signed SPECIMEN(S): A LEFT INGUINAL HERNIA CONTENTS SPECIMEN SOURCE: A. LEFT INGUINAL HERNIA CONTENTS CLINICAL HISTORY: Recurrent left inguinal hernia FINAL PATHOLOGIC DIAGNOSIS: Left inguinal hernia contents: - [place] lobulated adipose tissue and vasculature consistent with lipoma. - Negative for atypical features. JVR MICROSCOPIC EXAMINATION: Histologic sections of all submitted blocks are examined by light microscopy. These findings, together with the gross examination, support the pathologic diagnosis. GROSS DESCRIPTION: The specimen, labeled and designated "Charisse, left inguinal hernia contents," is received in formalin and consists of multiple yellow-deutsch, soft, smooth, focally congested fibroadipose tissue fragments that aggregate measure 6.5 x 3.3 x 2.0 cm. Sectioning through the specimen reveal regular adipose tissue. No abnormalities are grossly identified. Station Air Traffic Control Specialist sections are submitted in (A1). JS (under the direct supervision of a pathologist) The Gross Description was prepared using a voice recognition system. The report was reviewed for accuracy; however, sound-alike word errors, addition and/or deletions may occur. If there is any question about this report, please contact Client Services. ADDITIONAL NOTES: Immunohistochemical and/or in situ hybridization studies if performed in this case included appropriate positive controls that reacted as expected. This test was developed and its performance characteristics determined by [facility]. It has not been cleared or approved by the U.S. Food and Drug Administration. The FDA has determined that such clearance or approval is not necessary. This test is used for clinical purposes. It should not be regarded as investigational or for research. [facility] is certified under the PATIENT NAME: MARCIANO GALVAN PATHOLOGY DATE OF : 45 REPORT #: [id number] PHYSICIAN: [facility] PCP: OTHER PCP REPORT IS CONFIDENTIAL AND NOT TO BE RELEASED WITHOUT AUTHORIZATION [facility] [address] [place] [address] Signed Clinical Laboratory Improvement Amendments of 1988 (CLIA) as qualified to perform high complexity clinical laboratory testing. PERFORMING LABORATORY: Technical component was performed by [facility], [address] [place] [id number] (CLIA# [id number]). Professional interpretation was performed by [facility] - [address] [address] [id number] Diagnostician: Alden Donovan MD Pathologist Electronically Signed 09/13/2025 Copies: ~ PATIENT NAME: MARCIANO GALVAN PATHOLOGY DATE OF : 45 REPORT #: [id number] PHYSICIAN: [facility] PCP: OTHER PCP REPORT IS CONFIDENTIAL AND NOT TO BE RELEASED WITHOUT AUTHORIZATION
== END 2025-09-11 15:29 | disposition home or self-care (01) ==
LOC: DS 07:50
PROVIDERS: ATTEND Surgery
PROC: 3E0T3BZ Introduction of Anesthetic Agent into Peripheral Nerves and Plexi, Percutaneous Approach (ICD-10-PCS; 2025-09-11)
PROC: 0YQ60ZZ Repair Left Inguinal Region, Open Approach (ICD-10-PCS; principal; 2025-09-11 09:30)
DX: K40.91 Unilateral inguinal hernia, without obstruction or gangrene, recurrent (principal); T83.718A Erosion of other implanted mesh to organ or tissue, initial encounter; F33.9 Major depressive disorder, recurrent, unspecified; I11.9 Hypertensive heart disease without heart failure; E78.5 Hyperlipidemia, unspecified; I48.20 Chronic atrial fibrillation, unspecified; Z79.01 Long term (current) use of anticoagulants; Z79.899 Other long term (current) drug therapy; Z86.73 Personal history of transient ischemic attack (TIA), and cerebral infarction without residual deficits; Z90.49 Acquired absence of other specified parts of digestive tract
CPT/HCPCS: 00830; 64425; 76942; 88302; 88304; J0131; J0165; J0688; J1100; J1885; J2003; J2405; J2704; J3010; J7121

== ENCOUNTER 2025-09-19 13:45 | Emergency (ER) | payer OTHER ==
[~2025-09-19] VITALS: Ht 175.3 cm; Wt 78.1 kg
--- OUTSIDE RECORDS SUMMARY | ~2025-09-19 | XMS | Continuity of Care Document ---
Demographics + + + | Address | [facility] [address] [address] | | | [place] [address] | + + + | Preferred Language | Unknown | + + + | Marital Status | Never | + + + | Anabaptism Affiliation | Unknown | + + + | Race | White | + + + | Ethnic Group | Not or | + + + Author + + + | Author | [place] | + + + | Organization | [place] | + + + | Address | [address] | | | [place] [address] | + + + | Phone | | + + + Care Team Providers + + + + | Care Asphalt Engineer Name | Role | Phone | + + + + Unavailable | Unavailable | + + + + Unavailable | Unavailable | + + + + Unavailable | Unavailable | + + + + Unavailable | Unavailable | + + + + Allergies and Intolerances + + + + + + | date | description | facility | reaction | severity | + + + + + + | 2025-09-11 | UNK | [facility] | (no reaction) | (no severity) | | 00:00 | | [facility] | | | + + + + + + Encounters No information. Functional Status No information. Immunizations No information. Medications + + + + | date | description | facility | + + + + | (no date) | APIXABAN | [facility] | | [facility] | + + + + | (no date) | APIXABAN | [facility] | | | [facility] | + + + + | (no date) | APIXABAN | [facility] | | | [facility] | + + + + | (no date) | BACLOFEN | [facility] | | | [facility] | + + + + | (no date) | BACLOFEN | [facility] | | | | [facility] | + + + + | (no date) | BACLOFEN | [facility] | | | | [facility] | + + + + | (no date) | CEPHALEXIN | [facility] | | | | [facility] | + + + + | 2025-08-20 00:00 | CEPHALEXIN | [facility] | | | | [facility] | + + + + | (no date) | CHLORTHALIDONE | [facility] | | | | [facility] | + + + + | (no date) | CHLORTHALIDONE | [facility] | | | | [facility] | + + + + | (no date) | CHLORTHALIDONE | [facility] | | | | [facility] | + + + + | (no date) | FLUOXETINE HCL | [facility] | | | | [facility] | + + + + | (no date) | FLUOXETINE HCL | [facility] | | | | [facility] | + + + + | (no date) | FLUOXETINE HCL | [facility] | | | | [facility] | + + + + | (no date) | LISINOPRIL | [facility] | | | | [facility] | + + + + | (no date) | LISINOPRIL | [facility] | | | | [facility] | + + + + | (no date) | LISINOPRIL | [facility] | | | | [facility] | + + + + | (no date) | Cholecalciferol (Vitamin | [facility] | | | D3) | [facility] | + + + + | (no date) | Cholecalciferol (Vitamin | [facility] | | | D3) | [facility] | + + + + | (no date) | Cholecalciferol (Vitamin | [facility] | | | D3) | [facility] | + + + + | (no date) | FERROUS SULFATE | [facility] | | | | [facility] | + + + + | (no date) | FERROUS SULFATE | [facility] | | | | [facility] | + + + + | (no date) | FERROUS SULFATE | [facility] | | | | [facility] | + + + + | (no date) | FINASTERIDE | [facility] | | | | [facility] | + + + + | (no date) | FINASTERIDE | [facility] | | | | [facility] | + + + + | (no date) | FINASTERIDE | [facility] | | | | [facility] | + + + + | (no date) | HYDROCHLOROTHIAZIDE | [facility] | | | | [facility] | + + + + | (no date) | HYDROCHLOROTHIAZIDE | [facility] | | | | [facility] | + + + + | (no date) | HYDROCHLOROTHIAZIDE | [facility] | | | | [facility] | + + + + | (no date) | SPIRONOLACTONE | [facility] | | | | [facility] | + + + + | (no date) | SPIRONOLACTONE | [facility] | | | | [facility] | + + + + | (no date) | SPIRONOLACTONE | [facility] | | | | [facility] | + + + + | (no date) | ATORVASTATIN | [facility] | | | | [facility] | + + + + | (no date) | ATORVASTATIN | [facility] | | | | [facility] | + + + + | (no date) | ATORVASTATIN | [facility] | | | | [facility] | + + + + | (no date) | HYDROCODONE | [facility] | | | BIT/ACETAMINOPHEN | [facility] | + + + + | (no date) | METFORMIN HCL | [facility] | | | | [facility] | + + + + | (no date) | METFORMIN HCL | [facility] | | | | [facility] | + + + + | (no date) | METFORMIN HCL | [facility] | | | | [facility] | + + + + | (no date) | TAMSULOSIN HCL | [facility] | | | | [facility] | + + + + | (no date) | TAMSULOSIN HCL | [facility] | | | | [facility] | + + + + | (no date) | TAMSULOSIN HCL | [facility] | | | | [facility] | + + + + | (no date) | METOPROLOL TARTRATE | [facility] | | | | [facility] | + + + + | (no date) | METOPROLOL TARTRATE | [facility] | | | | [facility] | + + + + | (no date) | METOPROLOL TARTRATE | [facility] | | | | [facility] | + + + + Problems + + + + | date | description | facility | + + + + | 2025-07-08 00:00 | Anemia | [facility] | | | | [facility] | + + + + | 2025-07-08 00:00 | Anemia | [facility] | | | | [facility] | + + + + | 2025-07-08 00:00 | Anemia | [facility] | | | | [facility] | + + + + | 2025-07-08 00:00 | Dehydration | [facility] | | | | [facility] | + + + + | 2025-07-08 00:00 | Dehydration | [facility] | | | | [facility] | + + + + | 2025-07-08 00:00 | Dehydration | [facility] | | | | [facility] | + + + + | 2025-08-12 00:00 | Hematoma of right lower | [facility] | | | leg | [facility] | + + + + | 2025-08-12 00:00 | Hematoma of right lower | [facility] | | | leg | [facility] | + + + + | 2025-08-20 00:00 | Cellulitis | [facility] | | | | [facility] | + + + + Procedures + + + + | date | description | facility | + + + + | 2025-09-11 00:00 | Inguinal hernia repair, | [facility] | | | left | [facility] | + + + + | 2025-09-11 00:00 | Inguinal hernia repair, | [facility] | | | left | [facility] | + + + + Results/Labs +--------+--------+ +---------+--------+---------+ | test | date | facility | value | unit | notes | +--------+--------+ +---------+--------+---------+ + + | Result panel 1 | + + + + + +--------+ + + | MARIANNA # Daltond | 2025-07-08 | | 8.86 | (missing) | (missing) | | Auto | 19:32:07 | [facility] | | | | + + + +--------+ + + + + | Result panel 2 | + + + + + +--------+ + + | RBC # Bld | 2025-07-08 | | 2.88 | (missing) | (missing) | | Auto | 19:32:07 | [facility] | | | | + + + +--------+ + + + + | Result panel 3 | + + + + + +-------+ + + | Hgb | 2025-07-08 | | 8.8 | (missing) | (missing) | | Bld-mCnc | 19:32:07 | [facility] | [facility] | | | | + + + +-------+ + + + + | Result panel 4 | + + + + + +--------+ + + | Hct VFr.DF | 2025-07-08 | | 26.5 | (missing) | (missing) | | Bld Auto | 19:32:07 | [facility] | | | | + + + +--------+ + + + + | Result panel 5 | + + + + + +--------+ + + | RBC Auto | 2025-07-08 | | 92.0 | (missing) | (missing) | | | 19:32:07 | [facility] | | | | + + + +--------+ + + + + | Result panel 6 | + + + + + +--------+ + + | MCH RBC Qn | 2025-07-08 | | 30.6 | (missing) | (missing) | | Auto | 19:32:07 | [facility] | | | | + + + +--------+ + + + + | Result panel 7 | + + + + + +--------+ + + | MCHC RBC | 2025-07-08 | | 33.2 | (missing) | (missing) | | Auto-EntMCnc | 19:32:07 | [facility] | | | | + + + +--------+ + + + + | Result panel 8 | + + + + + +-------+ + + | Platelet # | 2025-07-08 | | 244 | (missing) | (missing) | | Bld Auto | 19:32:07 | [facility] | | | | + + + +-------+ + + + + | Result panel 9 | + + + + + +--------+ + + | Neutrophils | 2025-07-08 | | 79.3 | (missing) | (missing) | | NFr Bld | 19:32:07 | [facility] | | | | | Auto | [facility] | | | | + + + +--------+ + + + + | Result panel 10 | + + + + + +--------+ + + | Lymphocytes | 2025-07-08 | | 13.3 | (missing) | (missing) | | NFr Bld | 19:32:07 | [facility] | | | | | Auto | [facility] | | | | + + + +--------+ + + + + | Result panel 11 | + + + + + +-------+ + + | Monocytes | 2025-07-08 | | 6.1 | (missing) | (missing) | | NFr Bld Auto | 19:32:07 | [facility] | | | | + + + +-------+ + + + + | Result panel 12 | + + + + + +-------+ + + | Eosinophil | 2025-07-08 | | 0.8 | (missing) | (missing) | | NFr Bld Auto | 19:32:07 | [facility] | | | | + + + +-------+ + + + + | Result panel 13 | + + + + + +-------+ + + | Basophils | 2025-07-08 | | 0.2 | (missing) | (missing) | | NFr Bld Auto | 19:32:07 | [facility] | | | | + + + +-------+ + + + + | Result panel 14 | + + + + + +--------+ + + | Prothrombin | 2025-07-08 | | 13.8 | (missing) | (missing) | | time | 19:32:07 | [facility] | | | | + + + +--------+ + + + + | Result panel 15 | + + + + + +--------+ + + | INR PPP | 2025-07-08 | | 1.14 | (missing) | (missing) | | | 19:32:07 | [facility] | | | | + + + +--------+ + + + + | Result panel 16 | + + + + + +--------+ + + | aPTT PPP | 2025-07-08 | | 29.2 | (missing) | (missing) | | | 19:32:07 | [facility] | | | | + + + +--------+ + + + + | Result panel 17 | + + + + + +-------+---------+ + | Glucose | 2025-07-08 | | 142 | mg/dL | (missing) | | SerPl-mCnc | 19:32:07 | [facility] | | | | + + + +-------+---------+ + + + | Result panel 18 | + + + + + +------+---------+ + | BUN | 2025-07-08 | | 26 | mg/dL | (missing) | | SerPl-mCnc | 19:32:07 | [facility] | | | | + + + +------+---------+ + + + | Result panel 19 | + + + + + +--------+---------+ + | Creat | 2025-07-08 | | 1.14 | mg/dL | (missing) | | SerPl-mCnc | 19:32:07 | [facility] | | | | + + + +--------+---------+ + + + | Result panel 20 | + + + + + +------+ + + | eGFRcr | 2025-07-08 | | 65 | (missing) | (missing) | | SerPlBld | 19:32:07 | [facility] | | | | | CKD-EPI 2020 | [facility] | | | | + + + +------+ + + + + | Result panel 21 | + + + + + +---------+ + + | BUN/Creat | 2025-07-08 | | 22.80 | (missing) | (missing) | | SerPl | 19:32:07 | [facility] | | [facility] | | | | + + + +---------+ + + + + | Result panel 22 | + + + + + +-------+ + + | Sodium | 2025-07-08 | | 136 | (missing) | (missing) | | SerPl-sCnc | 19:32:07 | [facility] | | | [facility] | | | | + + + +-------+ + + + + | Result panel 23 | + + + + + +-------+ + + | Potassium | 2025-07-08 | | 4.3 | (missing) | (missing) | | SerPl-sCnc | 19:32:07 | [facility] | | | | + + + +-------+ + + + + | Result panel 24 | + + + + + +------+ + + | Chloride | 2025-07-08 | | 99 | (missing) | (missing) | | SerPl-sCnc | 19:32:07 | [facility] | | | | | [facility] | | | | + + + +------+ + + + + | Result panel 25 | + + + + + +------+ + + | CO2 | 2025-07-08 | | 29 | (missing) | (missing) | | SerPl-sCnc | 19:32:07 | [facility] | | | | | | [facility] | | | | + + + +------+ + + + + | Result panel 26 | + + + + + +--------+ + + | Anion Gap | 2025-07-08 | | 12.3 | (missing) | (missing) | | SerPl | 19:32:07 | [facility] | | | | | Calculated.4 | [facility] Ions-sCnc | | [facility] | | | | + + + +--------+ + + + + | Result panel 27 | + + + + + +-------+---------+ + | Calcium | 2025-07-08 | | 9.3 | mg/dL | (missing) | | SerPl-mCnc | 19:32:07 | [facility] | | | | | | [facility] | | | | + + + +-------+---------+ + + + | Result panel 28 | + + + + + +-------+ + + | Prot | 2025-07-08 | | 6.4 | (missing) | (missing) | | SerPl-mCnc | 19:32:07 | [facility] | | | | [facility] | | | | + + + +-------+ + + + + | Result panel 29 | + + + + + +-------+ + + | Albumin | 2025-07-08 | | 3.1 | (missing) | (missing) | | SerPl-Addie | 19:32:07 | [facility] | | | | | [facility] | | | | + + + +-------+ + + + + | Result panel 30 | + + + + + +-------+ + + | Globulin | 2025-07-08 | | 3.3 | (missing) | (missing) | | Ser-Addie | 19:32:07 | [facility] | | | | | | [facility] | | | | + + + +-------+ + + + + | Result panel 31 | + + + + + +--------+ + + | | 2025-07-08 | | 0.94 | (missing) | (missing) | | Albumin/Glob | 19:32:07 | [facility] | | | | | SerPl | [facility] | | | | + + + +--------+ + + + + | Result panel 32 | + + + + + +-------+---------+ + | Bilirub | 2025-07-08 | | 0.3 | mg/dL | (missing) | | SerPl-mCnc | 19:32:07 | [facility] | | | | + + + +-------+---------+ + + + | Result panel 33 | + + + + + +------+ + + | AST | 2025-07-08 | | 16 | (missing) | (missing) | | SerPl-cCnc | 19:32:07 | [facility] | | | | | [facility] | | | | + + + +------+ + + + + | Result panel 34 | + + + + + +------+ + + | ALT | 2025-07-08 | | 21 | (missing) | (missing) | | SerPl-cCnc | 19:32:07 | [facility] | | | | | [facility] | | | | + + + +------+ + + + + | Result panel 35 | + + + + + +------+ + + | ALP | 2025-07-08 | | 88 | (missing) | (missing) | | [facility] | 19:32:07 | [facility] | | | | + + + +------+ + + + + | Result panel 36 | + + + + + +---------+ + + | TSH SerPl | 2025-07-08 | | 2.619 | (missing) | (missing) | | DL<=0.005 | 19:32:07 | [facility] | | | | | mIU/L-aCnc | [facility] | | | | + + + +---------+ + + + + | Result panel 37 | + + + + + +-----+ + + | ABO Group | 2025-07-08 | | O | (missing) | (missing) | | Bld | 20:22:07 | [facility] | | | | | | [facility] | | | | + + + +-----+ + + + + | Result panel 38 | + + + + + + + + + | Rh Bld | 2025-07-08 | | POSITIVE | (missing) | (missing) | | | 20:22:07 | [facility] | [facility] | | | [facility] | | | | + + + + + + + + + | Result panel 39 | + + + + + + + + + | IAT Poly-Sp | 2025-07-08 | | NEGATIVE | (missing) | (missing) | | Reag SerPl | 20:22:07 | [facility] | | | | | Ql | [facility] | | | | + + + + + + + + + | Result panel 40 | + + + + + + + + + | Transf Band | 2025-07-08 | | BLOOD IN | (missing) | (missing) | | Num Patient | 20:22:07 | [facility] | LAB | | | [facility] | | | | + + + + + + + + + | Result panel 41 | + + + + + +--------+ + + | WBC # Bld | 2025-08-20 | | 7.58 | (missing) | (missing) | | Auto | 12:50:07 | [facility] | | | | | | [facility] | | | | + + + +--------+ + + + + | Result panel 42 | + + + + + +--------+ + + | Lymphocytes | 2025-08-20 | | 15.4 | (missing) | (missing) | | NFr Bld | 12:50:07 | [facility] | | | | | Auto | [facility] | | | | + + + +--------+ + + + + | Result panel 43 | + + + + + +-------+ + + | Monocytes | 2025-08-20 | | 8.4 | (missing) | (missing) | | NFr Bld Auto | 12:50:07 | [facility] | | | | | | [facility] | | | | + + + +-------+ + + + + | Result panel 44 | + + + + + +-------+ + + | Eosinophil | 2025-08-20 | | 1.5 | (missing) | (missing) | | NFr Bld Auto | 12:50:07 | [facility] | | | | | | [facility] | | | | + + + +-------+ + + + + | Result panel 45 | + + + + + +-------+ + + | Basophils | 2025-08-20 | | 0.3 | (missing) | (missing) | | NFr Bld Auto | 12:50:07 | [facility] | | | | | | [facility] | | | | + + + +-------+ + + + + | Result panel 46 | + + + + + +-------+---------+ + | Glucose | 2025-08-20 | | 142 | mg/dL | (missing) | | SerPl-mCnc | 12:50:07 | [facility] | | | | | | [facility] | | | | + + + +-------+---------+ + + + | Result panel 47 | + + + + + +------+---------+ + | BUN | 2025-08-20 | | 16 | mg/dL | (missing) | | SerPl-mCnc | 12:50:07 | [facility] | | | | | | [facility] | | | | + + + +------+---------+ + + + | Result panel 48 | + + + + + +--------+---------+ + | Creat | 2025-08-20 | | 0.97 | mg/dL | (missing) | | SerPl-mCportillo | 12:50:07 | [facility] | | | | | | [facility] | | | | + + + +--------+---------+ + + + | Result panel 49 | + + + + + +------+ + + | eGFRcr | 2025-08-20 | | 79 | (missing) | (missing) | | SerPlBld | 12:50:07 | [facility] | | | | | CKD-EPI 2020 | [facility] | | | | + + + +------+ + + + + | Result panel 50 | + + + + + +---------+ + + | BUN/Creat | 2025-08-20 | | 16.49 | (missing) | (missing) | | SerPl | 12:50:07 | [facility] | | | | | | [facility] | | | | + + + +---------+ + + + + | Result panel 51 | + + + + + +-------+ + + | Sodium | 2025-08-20 | | 135 | (missing) | (missing) | | SerPl-[facility] | 12:50:07 | [facility] | [facility] | | [facility] | | | | + + + +-------+ + + + + | Result panel 52 | + + + + + +--------+ + + | RBC # Bld | 2025-08-20 | | 3.43 | (missing) | (missing) | | Auto | 12:50:07 | [facility] | [facility] | | | | [facility] | | | | + + + +--------+ + + + + | Result panel 53 | + + + + + +-------+ + + | Potassium | 2025-08-20 | | 4.8 | (missing) | (missing) | | SerPl-sCnc | 12:50:07 | [facility] | | | | | [facility] | | | | + + + +-------+ + + + + | Result panel 54 | + + + + + +-------+ + + | Chloride | 2025-08-20 | | 101 | (missing) | (missing) | | SerPl-sCnc | 12:50:07 | [facility] | | | | | [facility] | | | | + + + +-------+ + + + + | Result panel 55 | + + + + + +------+ + + | CO2 | 2025-08-20 | | 28 | (missing) | (missing) | | SerPl-sCnc | 12:50:07 | [facility] | | | | | [facility] | | | | + + + +------+ + + + + | Result panel 56 | + + + + + +--------+ + + | Anion Gap | 2025-08-20 | | 10.8 | (missing) | (missing) | | SerPl | 12:50:07 | [facility] | | | | | Calculated.4 | [facility] I[facility]-sCnc | | [facility] | | | | + + + +--------+ + + + + | Result panel 57 | + + + + + +-------+---------+ + | Calcium | 2025-08-20 | | 8.8 | mg/dL | (missing) | | SerPl-mCnc | 12:50:07 | [facility] | | | | | [facility] | | | | + + + +-------+---------+ + + + | Result panel 58 | + + + + + +-------+ + + | Prot | 2025-08-20 | | 6.1 | (missing) | (missing) | | Pau | 12:50:07 | [facility] | [facility] | [facility] | | | | + + + +-------+ + + + + | Result panel 59 | + + + + + +-------+ + + | Albumin | 2025-08-20 | | 2.9 | (missing) | (missing) | | SerPlou-Addie | 12:50:07 | [facility] | [facility] | | [facility] [place] [facility] | | | | + + + +-------+ + + + + | Result panel 60 | + + + + + +-------+ + + | Globulin | 2025-08-20 | | 3.2 | (missing) | (missing) | | [facility] | 12:50:07 | [facility] [place] [facility] | | | | + + + +-------+ + + + + | Result panel 61 | + + + + + +--------+ + + | | 2025-08-20 | | 0.91 | (missing) | (missing) | | Albumin/Glob | 12:50:07 | [facility] [place] [facility] | | | | + + + +--------+ + + + + | Result panel 62 | + + + + + +-------+---------+ + | Bilirub | 2025-08-20 | | 0.5 | mg/dL | (missing) | | SerPl-mCnc | 12:50:07 | [facility] [place] [facility] | | | | + + + +-------+---------+ + + + | Result panel 63 | + + + + + +--------+ + + | Hgb | 2025-08-20 | | 10.2 | (missing) | (missing) | | Bld-mCnc | 12:50:07 | [facility] [place] [facility] | | | | + + + +--------+ + + + + | Result panel 64 | + + + + + +------+ + + | AST | 2025-08-20 | | 14 | (missing) | (missing) | | Ser[facility]-cCnc | 12:50:07 | [facility] [place] [facility] | | | | + + + +------+ + + + + | Result panel 65 | + + + + + +------+ + + | ALT | 2025-08-20 | | 12 | (missing) | (missing) | | [facility] | 12:50:07 | [facility] [place] [facility] | | | | + + + +------+ + + + + | Result panel 66 | + + + + + +------+ + + | ALP | 2025-08-20 | | 86 | (missing) | (missing) | | [facility] | 12:50:07 | [facility] [place] [facility] | | | | + + + +------+ + + + + | Result panel 67 | + + + + + +--------+ + + | Hct VFr.DF | 2025-08-20 | | 31.5 | (missing) | (missing) | | Bld Auto | 12:50:07 | [facility] [place] [facility] | | | | + + + +--------+ + + + + | Result panel 68 | + + + + + +--------+ + + | RBC Auto | 2025-08-20 | | 91.8 | (missing) | (missing) | | | 12:50:07 | [facility] [place] [facility] | | | | + + + +--------+ + + + + | Result panel 69 | + + + + + +--------+ + + | [facility] RBC Qn | 2025-08-20 | | 29.7 | (missing) | (missing) | | Auto | 12:50:07 | [facility] [place] [facility] | | | | + + + +--------+ + + + + | Result panel 70 | + + + + + +--------+ + + | MCHC RBC | 2025-08-20 | | 32.4 | (missing) | (missing) | | Auto-EntMCnc | 12:50:07 | [facility] [place] [facility] | | | | + + + +--------+ + + + + | Result panel 71 | + + + + + +-------+ + + | Platelet # | 2025-08-20 | | 186 | (missing) | (missing) | | Bld Auto | 12:50:07 | [facility] [place] [facility] | | | | + + + +-------+ + + + + | Result panel 72 | + + + + + +--------+ + + | Neutrophils | 2025-08-20 | | 74.3 | (missing) | (missing) | | NFr Bld | 12:50:07 | [facility] | | | | | [facility] [place] [facility] | | | | + + + +--------+ + + + + | Result panel 73 | + + + + + +-------+ + + | Glucose | 2025-09-11 | | 121 | (missing) | (missing) | | Bld-mCnc | 08:49:07 | [facility] [place] [facility] | | | | + + + +-------+ + + Social History + + + + | date | description | facility | + + + + | (no date) | Unknown if ever smoked | [facility] | [facility] | + + + + | (no date) | Unknown if ever smoked | [facility] | | [facility] | + + + + | (no date) | Unknown if ever smoked | [facility] | | | [facility] | + + + + Vital Signs + + + +---------+ | date | measurement | value | units | + + + +---------+ | 2025-07-08 00:00 | BMI | 24.0 | kg/m2 | + + + +---------+ | 2025-07-08 00:00 | BP_diastolic | 98 | mmHg | + + + +---------+ | 2025-07-08 00:00 | BP_systolic | 139 | mmHg | + + + +---------+ | 2025-07-08 00:00 | heart_rate | 83 | /min | + + + +---------+ | 2025-07-08 00:00 | height_metric | 175.26 | cm | + + + +---------+ | 2025-07-08 00:00 | height_standard | 69 | in | + + + +---------+ | 2025-07-08 00:00 | o2_saturation | 97 | % | + + + +---------+ | 2025-07-08 00:00 | respiration_rate | 17 | /min | + + + +---------+ | 2025-07-08 00:00 | | 98.7 | F | | | temperature_standar | | | | | d | | | + + + +---------+ | 2025-07-08 00:00 | weight_metric | 73.799 | kg | + + + +---------+ | 2025-07-08 00:00 | weight_standard | 162.700 | lb | + + + +---------+ | 2025-08-12 00:00 | BMI | 23.8 | kg/m2 | + + + +---------+ | 2025-08-12 00:00 | BP_diastolic | 78 | mmHg | + + + +---------+ | 2025-08-12 00:00 | BP_systolic | 141 | mmHg | + + + +---------+ | 2025-08-12 00:00 | heart_rate | 76 | /min | + + + +---------+ | 2025-08-12 00:00 | height_metric | 175.26 | cm | + + + +---------+ | 2025-08-12 00:00 | height_standard | 69 | in | + + + +---------+ | 2025-08-12 00:00 | o2_saturation | 98 | % | + + + +---------+ | 2025-08-12 00:00 | respiration_rate | 15 | /min | + + + +---------+ | 2025-08-12 00:00 | | 97.7 | F | | | temperature_standar | | | | | d | | | + + + +---------+ | 2025-08-12 00:00 | weight_metric | 73 | kg | + + + +---------+ | 2025-08-12 00:00 | weight_standard | 160.937 | lb | + + + +---------+ | 2025-08-20 00:00 | BMI | 24.4 | kg/m2 | + + + +---------+ | 2025-08-20 00:00 | BP_diastolic | 75 | mmHg | + + + +---------+ | 2025-08-20 00:00 | BP_systolic | 138 | mmHg | + + + +---------+ | 2025-08-20 00:00 | heart_rate | 68 | /min | + + + +---------+ | 2025-08-20 00:00 | height_metric | 175.26 | cm | + + + +---------+ | 2025-08-20 00:00 | height_standard | 69 | in | + + + +---------+ | 2025-08-20 00:00 | o2_saturation | 97 | % | + + + +---------+ | 2025-08-20 00:00 | respiration_rate | 18 | /min | + + + +---------+ | 2025-08-20 00:00 | | 97.8 | F | | | temperature_standar | | | | | d | | | + + + +---------+ | 2025-08-20 00:00 | weight_metric | 75.001 | kg | + + + +---------+ | 2025-08-20 00:00 | weight_standard | 165.350 | lb | + + + +---------+ | 2025-09-02 00:00 | BMI | 23.8 | kg/m2 | + + + +---------+ | 2025-09-02 00:00 | height_metric | 175.26 | cm | + + + +---------+ | 2025-09-02 00:00 | height_standard | 69 | in | + + + +---------+ | 2025-09-02 00:00 | weight_metric | 73 | kg | + + + +---------+ | 2025-09-02 00:00 | weight_standard | 160.937 | lb | + + + +---------+ | 2025-09-11 00:00 | BP_diastolic | 78 | mmHg | + + + +---------+ | 2025-09-11 00:00 | BP_systolic | 146 | mmHg | + + + +---------+ | 2025-09-11 00:00 | heart_rate | 82 | /min | + + + +---------+ | 2025-09-11 00:00 | o2_saturation | 97 | % | + + + +---------+ | 2025-09-11 00:00 | respiration_rate | 16 | /min | + + + +---------+ | 2025-09-11 00:00 | | 97.4 | F | | | temperature_standar | | | | | d | | | + + + +---------+"
[~2025-09-19 13:45] MED LIST changes: +HYDROCODON-ACE1 EA10 PO; -IBLOOD GLUCOSE TEST STRIP 1 EA TEST VI PRN; -LACTATED RINGER'S 1,000 ML IV SCH; -LIDOCAINE HCL 1% 5 ML SDV INJ ONE
--- OUTSIDE RECORDS SUMMARY | 2025-09-19 13:51 | XMS ---
PreManage Notification: MARCIANO GALVAN Security Bookkeeper Receptionist Events No recent Security Events currently on file CRITERIA MET - [facility] - 2 Visits in 30 Days CARE PROVIDERS There are no care providers on record at this time. Ghazal has no Care Guidelines for this patient. Denis VISIT COUNT (12 MO.) [address] [facility] [place]. TOTAL 6 NOTE: Visits indicate total known visits. ED/C VISIT TRACKING (12 MO.) 09/19/2025 13:45 [facility] [place] TYPE: Emergency COMPLAINT: - VISUAL CHANGES 08/20/2025 11:15 [facility] [place] TYPE: Emergency COMPLAINT: - RT LEG PAIN DIAGNOSES: - Cellulitis of right lower limb - Contusion of right lower leg, initial encounter - termite technician (current) use of anticoagulants - correction (current) use of oral hypoglycemic drugs - Other superintendent terminal (current) drug therapy - Unspecified atrial fibrillation 08/12/2025 12:54 [facility] [place] TYPE: Emergency COMPLAINT: - RT LEG INJURY DIAGNOSES: - Contusion of right lower leg, initial encounter - correction (current) use of anticoagulants - correction (current) use of oral hypoglycemic drugs - Other superintendent terminal (current) drug therapy - Pain in right lower leg - Striking against or struck by other objects, initial encounter - Unspecified atrial fibrillation 07/08/2025 16:33 [facility] [place] TYPE: Emergency COMPLAINT: - WEAKNESS,DIZZY DIAGNOSES: - Anemia, unspecified - Dehydration - correction (current) use of anticoagulants - correction (current) use of oral hypoglycemic drugs - Other superintendent terminal (current) drug therapy - Weakness 03/21/2025 12:35 [facility] TYPE: Emergency COMPLAINT: - ABDOMINAL PAIN DIAGNOSES: - Other superintendent terminal (current) drug therapy - Unilateral inguinal hernia, without obstruction or gangrene, not specified as recurrent - Unspecified atrial fibrillation 10/11/2024 17:33 [facility] TYPE: Emergency COMPLAINT: - nose bleed DIAGNOSES: 1. Epistaxis INPATIENT VISIT TRACKING (12 MO.) No inpatient visits to display in this time frame [email or web address]
[2025-09-19 15:00] LABS: BASOPHILS 0.4 % (0.2-1.2); EOSINOPHILS 1.9 % (0.8-7.0); LYMPHOCYTES 17.9 % (21.8-53.1); MCH 29.6 PG (25.7-32.2); MCHC 32.0 g/dL (32.3-36.5); MCV 92.3 fL (79.0-92.2); MONOCYTES 6.5 % (5.3-12.2); NEUTROPHILS 72.9 % (34.0-67.9); RBC 3.92 M/uL (4.63-6.08)
[2025-09-19 15:35] LABS: ALT (SGPT) 26.0 U/L (14-59); AST (SGOT) 18.0 U/L (15-37); GLOMERULAR FILTRATION RATE,EST 70.0 mL/min (>60); PROTEIN, TOTAL 5.9 g/dL (6.4-8.2); UREA NITROGEN 21.0 mg/dL (7-18)
[2025-09-19 18:45] LABS: BLOOD/HGB, URINE NEGATIVE (Negative); KETONE, URINE NEGATIVE (Negative); LEUK ESTERASE, URINE NEGATIVE (negative); NITRITE, URINE NEGATIVE (negative)
[2025-09-19 19:20] VITALS: BP 156/97
--- NOTE | 2025-09-20 06:02 | EKG ---
[facility] [address] [facility] [place] [address] \T\ T wave abnormality, consider anterolateral ischemia Prolonged QT Abnormal ECG When compared with ECG of 08-JUL-2025 16:47, Nonspecific T wave abnormality, improved in Inferior leads T wave inversion more evident in Lateral leads Confirmed by RICK DIAS MD ([id number] on 09/20/2025 6:02:14 AM Electronically Signed By: RICK DIAS 09/20/25 0602 PATIENT NAME: MARCIANO GALVAN JALEN Electrocardiogram DATE OF : 45 PHYSICIAN: RICK DIAS REPORT #: [id number] REPORT IS CONFIDENTIAL AND NOT TO BE RELEASED WITHOUT AUTHORIZATION
== END 2025-09-19 20:00 | disposition short-term general hospital (02) ==
LOC: ED 13:45
PROVIDERS: Emergency Medicine
DX: I63.9 Cerebral infarction, unspecified (principal); I48.91 Unspecified atrial fibrillation; Z79.01 Long term (current) use of anticoagulants; Z79.899 Other long term (current) drug therapy
CPT/HCPCS: 36415; 70496; 70551; 80053; 81003; 85025; 93005; 93010; 99285-25; Q9967